=== PATIENT | female | born 1980 | race Caucasian/White ===

== ENCOUNTER 2023-05-12 14:40 | Emergency (ER) | payer OTHER, SELFPAY ==
[2023-05-12 14:50] VITALS: BP 122/77; PULSE 65; TEMP 36.7; O2SAT 96; BMI 28.2
--- NOTE | 2023-05-12 15:05 | US_ITS ---
Patient: SCOUT PERDUE Facility:?[facility] RIS Patient ID:?[id number] Site Patient ID:?[id number]. Site :?[id number] Study:?US-Pelvis TRANSVAGINAL-05/12/2023 3:59:48 PM Ordering Physician:?TORRES VIGIL Final Report: INDICATION: Sudden onset of severe pelvic pain during intercourse. TECHNIQUE: Ultrasound pelvis transabdominal and transvaginal for better assessment or to better visualize the endometrium. Real-time sonographic images with spectral and color Doppler imaging of the ovaries were obtained. COMPARISON: None. FINDINGS: Uterus: 11.6 x 5.1 x 6.1 cm. Normal echotexture of the myometrium. Tiny 2.6 centimeter fundal intramural fibroid. Endometrium: Transvaginal imaging was performed to better evaluate the endometrium. Intrauterine device which appears to be in appropriate position. No sign of endometrial mass or fluid. Right ovary 6.8 x 3.3 x 5.4 centimeters. Left ovary 4.4 x 1.7 x 2.5 centimeter. Incidental 4.5 centimeter collapsed right ovarian cyst. No ovarian or adnexal masses. Normal arterial and venous blood flow is demonstrated in both ovaries. Cul-de-sac: Small volume free fluid. IMPRESSION: Intrauterine device which appears to be in appropriate position. Incidental 4.5 centimeter collapsed right ovarian cyst. Associated small volume free fluid. Otherwise, unremarkable pelvic ultrasound for age. Dictated by Raymon Rodriges MD @ 05/12/2023 4:24:20 PM Signed by:?Raymon Rodriges MD @05/12/2023 4:31:35 PM (Electronic Signature)
[2023-05-12 15:26] LABS: Appearance Urine Clear (Clear); Bilirubin Urine Negative (Negative); Blood Urine Negative (Negative); Color Urine Yellow (Yellow); Glucose Urine Negative (Negative); Ketones Urine Negative (Negative); Leukocyte Esterase Urine Negative (Negative); Nitrite Urine Negative (Negative); Protein Urine Negative (Negative); Specific Gravity Urine >= 1.030 (1.000-1.030); Ur HCG Qualitative* Negative (Negative); Urobilinogen Urine 0.2 (0.2-1.0); pH Urine 6.5 (5.0-8.5)
[2023-05-12 15:33] LABS: Basophils Percent Auto 0.2 % (0.0-3.0); Eosinophils Percent Auto 0.6 % (0.0-7.0); Hematocrit 38.9 % (33.0-51.0); Hemoglobin* 12.3 gm/dL (12.0-16.0); Immature Granulocytes Pct Auto 0.2 %; Mean Corpuscular HGB Conc 32 gm/dL (32-36); Mean Corpuscular Hemoglobin 26 pg (26-34); Mean Corpuscular Volume 83 fL (80-100); Monocytes Percent Auto 6.5 % (0.0-11.0); Neutrophils Percent Auto 81.5 % (42.0-72.0); Platelet Count* 370 K/uL (140-440); RDW Coefficient of Variation % 15.8 % (11.5-15.5); White Blood Count* 12.51 K/uL (4.50-11.00)
[2023-05-12 15:38] LABS: Chloride* 107 mmol/L (96-114)
[2023-05-12 15:39] LABS: Potassium* 4.3 mmol/L (3.6-5.1); Sodium* 138 mmol/L (135-149)
[2023-05-12 15:41] LABS: Creatinine* 0.8 mg/dL (0.5-1.5); Est. Creatinine Clearance* 89.99; Estimated Glomerular Filt Rate 95 ml/min
[2023-05-12 15:42] LABS: Anion Gap 5 mEq/L (7-15); Blood Urea Nitrogen* 17 mg/dL (5-24); Carbon Dioxide* 26 mmol/L (20-32); Glucose* 98 mg/dL (60-115)
[2023-05-12 15:43] LABS: Calcium* 9.2 mg/dL (8.4-10.6)
--- NOTE | 2023-05-12 15:45 | ED.GENADULT ---
HPI - General Adult General Date Seen: 05/12/23 Chief complaint: Abdominal Pain Stated complaint: Suspected perforated IUD--intense cramping Time Seen by Provider: 05/12/23 14:58 Source: patient and family Mode of arrival: ambulatory Limitations: no limitations History of Present Illness HPI narrative: Patient is a 42-year-old woman here for evaluation of pelvic pain which started about an hour ago. It started during intercourse, was fairly mild but ramped up quickly over the course of 10 minutes to the point that it was severe. She says she vomited once. She took some ibuprofen and Tylenol and it is now improved although not gone. She had an IUD placed 8 weeks ago, she is concerned that it could have moved during intercourse and caused a problem. She has a history of a D&C related to a uterine polyp, IUD was placed at that time at [facility]. She said she had some spotting for 3 or 4 weeks, did have what seemed to be a light period a couple weeks ago and has not had any bleeding since then. She has not had pain like this before. She has a history of C-sections, denies other abdominal surgeries. No other psychologic history. She denies any other vomiting, nausea is resolved, no diarrhea constipation, appetite has been normal, no fevers, no urinary symptoms. Several allergies, reviewed. No other medications. Related Data Home Medications Medication Instructions Recorded Confirmed No Known Home Medications 05/12/23 05/12/23 Allergies Allergy/AdvReac Type Severity Reaction Status Date / Time cefaclor [From Ceclor] Allergy Severe Hives Verified 05/12/23 14:49 escitalopram [From Lexapro] Allergy Severe Swelling Verified 05/12/23 14:49 of Lip/Tongue/Throat morphine Allergy Severe Palpitation Verified 05/12/23 14:49 s Penicillins Allergy Severe Hives Verified 05/12/23 14:49 sertraline [From Zoloft] Allergy Severe Swelling Verified 05/12/23 14:49 of Lip/Tongue/Throat Sulfa (Sulfonamide Allergy Severe Swelling Verified 05/12/23 14:49 Antibiotics) of Lip/Tongue/Throat Review of Systems Status of ROS: Reports: 6 or more systems reviewed and unremarkable except as noted in History and below PFSH PFSH Social History Smoking Status: Never smoker Do you use any of these nicotine containing products: None How often do you have a drink containing alcohol: never How often do you have six or more drinks on one occasion: Never AUDIT-C Alcohol total score: 0 Non-prescribed substance use: denies use service: No Exam Narrative: Exam Narrative: Vital signs as noted above. In general, an alert, well-appearing patient. Head: Normocephalic, atraumatic. Eyes: Pupils are equal reactive. Extraocular movements are full. Conjunctivae are normal. ENT: Mucous membranes are moist. Throat is normal. Neck: Supple without lymphadenopathy. Heart: Regular rate and rhythm. No murmur or rub. Lungs: Clear bilaterally. No increased work of breathing, crackles or wheezes. Abdomen: Soft, nondistended. Mild suprapubic tenderness without rebound guarding or rigidity. Extremities: Well perfused. No edema. No calf tenderness. Pulses intact. Neurologic: Patient is alert and oriented to person and place. Speech is fluent. Face is symmetric. Moves all extremities equally. Affect: Normal. Skin: Warm and dry. Well perfused. Const: Vital Signs, click to edit/add: Vital Signs - 24 hr 05/12/23 14:50 Temperature 98.1 F Pulse Rate [Pulse Oximeter] 65 Blood Pressure [Ri ght Upper Arm] 122/77 Pulse Oximetry 96 Documenting provider has reviewed patient's vital signs: yes Course Course ED Course: Will obtain a pelvic ultrasound to evaluate for position of IUD although I told her I think it is unlikely related to mild positioning of the IUD. Other diagnostic considerations include ovarian cyst, UTI, ovarian torsion, among others. Declines need for anything for pain right now. Labs are notable for a mildly elevated white blood cell count of 12-1/2, hemoglobin is normal at 12.3. Metabolic panel unremarkable, CRP less than 0.5, UA negative, UPT negative. She remains comfortable here. Ultrasound read by Radiology as showing the IUD to be appropriately placed, she has a 4.5 cm collapsing cyst on the right consistent with a hemorrhagic or ruptured ovarian cyst. I do think her presentation is most consistent with this as a diagnosis. Given that she does not have persistent severe pain I do not think this represents torsion. If she has recurrent severe pain she should come back, new symptoms also such as fever, vomiting etcetera we should recheck. Otherwise I have asked her to follow up with her gynecology clinic in the next couple of weeks. Ibuprofen and/or Tylenol as needed for pain. Vital Signs Vital signs: Initial Vital Signs Temperature 98.1 F 05/12/23 14:50 Temperature Source Temporal Artery Scan 05/12/23 14:50 Pulse Rate 65 05/12/23 14:50 Pulse Rhythm Regular 05/12/23 14:50 Blood Pressure 122/77 05/12/23 14:50 Blood Pressure Mean 92 05/12/23 14:50 Blood Pressure Position Sitting 05/12/23 14:50 Pulse Oximetry 96 05/12/23 14:50 Vital Signs Temperature 98.1 F 05/12/23 14:50 Pulse Rate 65 05/12/23 14:50 Blood Pressure 122/77 05/12/23 14:50 Pulse Oximetry 96 05/12/23 14:50 Temperature 98.1 F 05/12/23 14:50 Pulse Rate 65 05/12/23 14:50 Blood Pressure 122/77 05/12/23 14:50 Pulse Oximetry 96 05/12/23 14:50 Medical Decision Making Lab Data Labs: Lab Results 05/12/23 05/12/23 Range/Units 15:10 15:15 WBC 12.51 H (4.50-11.00) K/uL RBC 4.70 (4.00-5.20) m/uL Hgb 12.3 (12.0-16.0) gm/dL Hct 38.9 (33.0-51.0) % MCV 83 (80-100) fL MCH 26 (26-34) pg MCHC 32 (32-36) gm/dL RDW Coeff of [place] 15.8 H (11.5-15.5) % Plt Count 370 (140-440) K/uL Neut % (Auto) 81.5 H (42.0-72.0) % Lymph % (Auto) 11.0 L (20-44) % [place] % (Auto) 6.5 (0.0-11.0) % Eos % (Auto) 0.6 (0.0-7.0) % Baso % (Auto) 0.2 (0.0-3.0) % Neut # (Auto) 10.20 H (1.7-7.0) K/uL Lymph # (Auto) 1.40 (0.90-2.90) K/uL [place] # (Auto) 0.80 (0.00-0.90) K/UL Eos # (Auto) 0.10 (0.00-0.50) K/uL Baso # (Auto) 0.00 (0.00-0.30) K/uL Abs Immat Gran (auto) 0.00 (0.00-0.30) K/uL Imm/Tot Granulo (auto) 0.2 % Sodium 138 (135-149) mmol/L Potassium 4.3 (3.6-5.1) mmol/L Chloride 107 (96-114) mmol/L Carbon Dioxide 26 (20-32) mmol/L Anion Gap 5 L (7-15) mEq/L BUN 17 (5-24) mg/dL Creatinine 0.8 (0.5-1.5) mg/dL Estimated Creat Clear 89.99 Estimated GFR 95 ml/min Glucose 98 (60-115) mg/dL Calcium 9.2 (8.4-10.6) mg/dL C-Reactive Protein < 0.5 L (0.5-1.0) mg/dL Urine Color Yellow (Yellow) Urine Appearance Clear (Clear) Urine pH 6.5 (5.0-8.5) Ur Specific [place] >= 1.030 (1.000-1.030) Urine Protein Negative (Negative) Urine Glucose (UA) Negative (Negative) Urine Ketones Negative (Negative) Urine Blood Negative (Negative) Urine Nitrite Negative (Negative) Urine Bilirubin Negative (Negative) Urine Urobilinogen 0.2 (0.2-1.0) Ur Leukocyte Esterase Negative (Negative) Urine RBC 0-2 (0-2) Urine WBC 0-2 (0-5) Ur Squamous Epith Cells Few (None-Few) Urine Bacteria Few A (None) Urine HCG, Qual Negative (Negative) Discharge Plan Discharge Clinical Impression: Rupture of cyst of right ovary Patient Disposition: Home, Self-Care Condition: Improved Instructions: Ovarian Cyst (ED) Additional Instructions: Ibuprofen and/or Tylenol as needed for pain, a good regimen for more significant pain is 400 mg of ibuprofen with 1000 mg of Tylenol at the same time. You can take this up to 3 times a day with food. Follow-up with your gynecology clinic in the next couple weeks. Return to the ER at any time for severe uncontrolled pain or new symptoms such as fever or vomiting. Your test was negative, your IUD is positioned appropriately. You have a 4.5 cm collapsed ovarian cyst on the right. Pain from the should improve over the next couple of days. Prescriptions: No Action No Known Home Medications Follow Up/Referrals: Melanie Xiong MD [Primary Care Provider] - Stand Alone Forms: [employer] Info Instructions
[2023-05-12 15:46] LABS: C Reactive Protein* < 0.5 mg/dL (0.5-1.0); Slide Review Reflex No
[2023-05-12 15:47] LABS: RBC Urine 0-2 (0-2); Squamous Epithelial Cell Urine Few (None-Few); WBC Urine 0-2 (0-5)
[2023-05-12 15:49] LABS: Bacteria Urine Few
== END 2023-05-12 16:47 | disposition home or self-care (01) ==
PROVIDERS: Emergency Provider Emergency Medicine; PCP Family Medicine
DX: N83.201 Unspecified ovarian cyst, right side (principal); K66.1 Hemoperitoneum
CPT/HCPCS: 36415; 76830; 80048; 81001; 81025; 85025; 86140; 87086; 93976; 99284